=== PATIENT | female | born 1980 | race Caucasian/White ===

== ENCOUNTER 2018-01-10 02:18 | Emergency (ER) | payer BC, OTHER ==
[~2018-01-10] VITALS: Ht 162.6 cm; Wt 63.5 kg
[~2018-01-10 02:18] MED LIST: ASPIRIN81 M2; FEMARA2.5 MG; PRENATAL; PROGESTERONE100 MG PO
[2018-01-10 02:23] VITALS: BP 138/84
[2018-01-10] MEDS ORDERED: TRAMADOL 50 MG50 MG PO (02:47)
[2018-01-10] MEDS ORDERED: KEFLEX500 M1 PO (02:47)
== END 2018-01-10 02:57 | disposition home or self-care (01) ==
LOC: ER 02:18
DX: L03.031 Cellulitis of right toe (principal)